=== PATIENT | male | born 1960 | race Caucasian/White ===

== ENCOUNTER 2018-11-15 06:08 | Inpatient (IN) ==
[2018-11-15] MEDS ORDERED: Albuterol 2.5 MG/3 ML NEBULIZER IH ONE (06:18)
[2018-11-15] MEDS ORDERED: CeFAZolin Syr 2,000MG/20 ML 2,000 MG/20 ML SYRINGE IVPB ONE (06:18)
[2018-11-15] MEDS ORDERED: Ringers Solution, Lactated 1,000 ML IVC SCH (06:30)
[2018-11-15] MEDS ORDERED: *HR* Rocuronium Bromide 50 MG/5 ML VIAL ONE ×3 (06:37→11:54)
[2018-11-15] MEDS ORDERED: *HR* Succinylcholine 200 MG/10 ML VIAL IVP ONE (06:37)
[2018-11-15] MEDS ORDERED: Lidocaine -MPF 4% 5 ML AMPUL ONE (06:37)
[2018-11-15] MEDS ORDERED: Lidocaine -MPF 2% 2 ML VIAL ONE (06:37)
[2018-11-15] MEDS ORDERED: Dexamethasone 4 MG/ML VIAL ONE (06:37)
[2018-11-15] MEDS ORDERED: Ondansetron 4 MG/2 ML VIAL ONE (06:37)
[2018-11-15] MEDS ORDERED: *HR* FentaNYL (PF) 100 MCG/2 ML VIAL ONE ×2 (06:37→08:17)
[2018-11-15] MEDS ORDERED: *HR* Midazolam HCl 2 MG/2 ML VIAL ONE (06:37)
[2018-11-15] MEDS ORDERED: *HR* Propofol 200 MG/20 ML VIAL IVP ONE (06:37)
--- NOTE | 2018-11-15 07:05 | History & Physical Report ---
Date of Encounter: 11/15/18 Time of Encounter: 07:05 24 Hour HP Update - Instructions Instructions: If the History and Physical is less than 30 days old and was completed prior to A.M. admission and or procedure and has NOT been updated on calendar day of procedure please complete this update prior to performing procedure. - Update Patient reports changes in Medical Condition: No Changes in examination, assessment, or condition: No Changes in Medication: No Preop tests/diagnostics Reviewed: Yes Surgery Remains Indicated: Yes Consent for Planned Operative Procedure(s) Verified: Yes - Pre-Operative Checklist Preoperative Checklist Indicated: Yes Prophylactic Antibiotic Ordered: Yes Home Medications Include Beta Deedee: No Is VTE Prophylaxis Indicated?: Yes
[2018-11-15] MEDS ORDERED: *HR* Phenylephrine 10 MG/ML VIAL ONE (07:08)
--- NOTE | 2018-11-15 07:15 | Anesthesia Evaluation PreOp ---
Date of Encounter: 11/15/18 Time of Encounter: 07:13 - Past History Planned Operation: Robotic Assisted Laparoscopic Prostatectomy Cardiac History: HTN Pulmonary History: Smoker (40 years), COPD, Snore METAL STAMPER History: Denies Any Significant HX Other Medical History: Denies Any Significant HX Anesthesia History: No Prior Anesthetic Complications, Past Anesthesia Alcohol Use: occasionally Drug use: none Medications and Allergies Albuterol Sulfate [Ventolin Hfa] 2 puff IH Q6H PRN 11/15/18 [History] Amlodipine Besylate 10 mg PO DAILY 11/15/18 [History] Beclomethasone Dipropionate [QVAR 80 mcg REDIHALER] 1 puff IH BID 11/15/18 [History] DULoxetine [Cymbalta] 20 mg PO BID 11/15/18 [History] Meloxicam 15 mg PO DAILY 11/15/18 [History] Tiotropium [Spiriva] 18 mcg IH DAILY 11/15/18 [History] Allergy/AdvReac Type Severity Reaction Status Date / Time Penicillins [PCN] Allergy Rash Verified 11/15/18 06:55 - Meds/Allergy Pre-op Review Medications Reviewed: Yes Allergies Reviewed: Yes Beta Blockers on Current Med List: No Anesthesia Results - Labs Laboratory Tests 10/30/18 10/30/18 09:15 09:15 WBC 8.9 Hgb 14.3 Hct 41.5 Plt Count 311 Creatinine 0.75 - Imaging EKG: report reviewed (10/30/2018 SINUS RHYTHM WITH SHORT VA INTERVAL) Anesthesia Exam O2 Sat Height 1.83 m Height 1.83 m Weight 76.204 kg Weight 76.204 kg O2 Sat by Pulse Oximetry 97 Vital Signs Temp Pulse Resp BP Pulse Ox 98.1 F 95 18 146/84 97 11/15/18 06:32 11/15/18 06:32 11/15/18 06:32 11/15/18 06:32 11/15/18 06:32 Height: 6' Weight: 168 lbs NPO (# of Hours): 8 Pain Scale: 0 Pain Scale Used: Numeric (1 - 10) - HEENT Pupil (Motor): EOMI Mallampati: II Teeth: Missing, Poor dentition Oral Opening: Greater than 3 - METAL STAMPER LOC: Oriented METAL STAMPER Motor: Normal RUE, Normal LUE, Normal RLE, Normal LLE, Normal Face METAL STAMPER Sensory: Normal: RUE, LUE, RLE, LLE, Face - Cardiac Rhythm: Regular Murmur: None - Pulmonary Breath Sounds: bilateral Clear Respiratory Effort: Symmetrical Anesthesia Assess/Plan ASA Score: 2 Level of consciousness: Cooperative, Oriented, Tranquil Anesthetic Plan: General Monitoring Plan: Standard Monitors Recovery Plan: PACU
[2018-11-15] MEDS ORDERED: *HR* OxyCODONE Immed Rel 5 MG TABLET PO PRN (07:25)
[2018-11-15] MEDS ORDERED: Ondansetron 4 MG/2 ML VIAL IVP ONE (07:25)
[2018-11-15] MEDS ORDERED: Bupivacaine-MPF 0.25% 10 ML VIAL ONE (07:26)
[2018-11-15] MEDS ORDERED: *HR* HYDROMORPHONE 2 MG/ML VIAL ONE (09:55)
[2018-11-15] MEDS ORDERED: Neostigmine Methylsulfate 3 MG/3 ML SYRINGE ONE (11:56)
--- NOTE | 2018-11-15 12:22 | Operative Note ---
Date of procedure: 11/15/18 Pre-op diagnosis: Prostate cancer Post-op diagnosis: same Procedure: Robotic assisted radical prostatectomy with bilateral pelvic lymph node dissection Anterior urethropexy Implants: 20-Burmese Salas catheter 19-Burmese Jose Elias drain Complications: None Anesthesia: CASSYA Surgeon: Lenard Valadez Was there an library serials assistant present: No Estimated blood loss (cc): 100 Specimen: see operative note Condition: stable Disposition: PACU Procedure in Detail: INDICATIONS FOR PROCEDURE: Mr. Tipton is a 58 year-old male with history of elevated PSA. He was found on prostate needle biopsy to have Kalani 3+4 pro state cancer. Multiple cores were positive on the biopsy. He is now presenting for robotic assisted prostatectomy with bilateral pelvic lymph node dissection. He was informed of the risks of the procedure including but not limited to bleeding, infection, injury to other structures, need for further procedures, lymphocele, urinary incontinence, urine leak, erectile dysfunction, bladder neck contracture, rectal injury, and the risk of anesthesia. He is willing to proceed. PROCEDURE: After informed consent was obtained, the patient was taken to the operating room, placed supine on the table. He was given IV antibiotics for antibiotic coverage. He had AGUSTINA's and SCD's placed on the lower extremities for DVT prophylaxis. Induction of general anesthesia was performed. The arms were tucked and he was placed in lithotomy position. He was secured to the OR table with padding. A 10mm incision was made in the infraumbilical region.. The Veress needle was introduced. The water drop test passed. Pneumoperitoneum was initiated with low pressures initially. The abomen was insufflated. I then placed a robotic port through this incision. Once the trocar was in place, the 0 degree camera for the robot was placed in the field and remaining trocars were placed. Robotic ports were placed x 2 on the right side. We placed another robotic port to the left of the umbilicus. We also placed a 12mm port in the left lower quadrant and a 5mm port superior and to the left of the umbilicus. Once all trocars were in place, the robot was docked to the patient and the monopolar scissors were placed on the right robotic arm. The bipolar [place] was in the left robotic arm and the Prograsp in the 4th arm. A posterior approach was initiated. Approximately 1 to 2 cm above the rectum cautery was used to incise the peritoneum. Careful dissection identified the vas deferens. These were dissected out. Cautery was used to control any bleeders. The vas deferens was cauterized and cut. The seminal vesicles were then identified and dissected out with bipolar cautery and sharp dissection. Once the posterior dissection was completed we then turned our attention to the bladder. We initially retracted the bowel with the 4th arm. The medial umbilical ligaments were cauterized and the bladder was taken down off the anterior abdominal wall using electrocautery. The bladder was dissected down to the endopelvic fascia. The bladder was then grasped with a 4th arm and retracted cephalad. We then swept the periprostatic fat off the prostate as well as the pelvic sidewall. The fat was sent for specimen. We then incised the endopelvic fascia on both sides and carried the incision up to the prostatic apex, sweeping the levator fibers off of the prostate. I then placed a backbleeding stitch near the bladder neck using an 0 Vicryl suture. We then turned our attention to the bladder neck which was incised with the monopolar cautery until the catheter was visualized at the bladder neck. The posterior bladder neck was then opened using the cautery until the space between the prostate and the bladder neck was visualized. Careful dissection using cautery continued along the posterior aspect of the bladder neck. Eventually, the vas deferens and seminal vesicals were encountered. These were brought up into the field and elevated with the fourth arm. Denonvillier's f ascia was dissected off the prostate posteriorly. The left nerve bundle was then released sharply. I carefully divided the pedicles using multiple Hem-o-stormy clips to clip the larger prostatic pedicle. Once the pedicles were controlled the nerves were carefully dissected off the posterior aspect of the prostate. Attention was then turned to the right side. The nerve bundle was again released sharply and the pedicles were controlled using Hem-o-stormy clips. The nerve bundle was then carefully dissected off the posterior aspect of the prostate. We then used the 4th arm to place the prostate on stretch in cephalad direction. The puboprostatic ligaments were carefully incised sharply. We then transected the dorsal venous complex sharply. There was a mild amount of bleeding from the dorsal vein. The dorsal vein was closed using an 0 Vicryl suture in a [id number] fashion. This suture was then placed into the periosteum of the symphysis pubis. This was tied down to provide a urethropexy to help with postoperative continence. Once I got to the urethra this was incised with cold scissors. I cut across the urethra until the catheter was visualized. The catheter was removed and the posterior urethra was transected. The prostate was then freed. Hemostasis was adequate. Fibrillar was placed over top of the neurovascular bundles to help with hemostasis. Attention was then turned to the left pelvic sidewall. The external iliac vein was identified. Careful dissection then isolated the lymph node packet and the obturator nerve was identified. Weck clips were placed at the superior aspect of the lymph node packet. They were also placed at the inferior aspect of the lymph node packet. An identical approach was performed on the right side. The node packets were sent separately. I removed the fibrillar. The urethral vesicle anastomosis was then performed with a 3-0 V-Stormy suture in running fashion starting at 6 o'clock position. With two sutures tied together we then ran the right side up about fpc. The left side was then run around until the bladder was reanastamosed to the urethra. The final 20 Burmese catheter was placed into the bladder and balloon filled with 15 mL of sterile water. The bladder was irrigated. No leak was identified. A 19 Burmese Jose Elias drain was placed through the trocar down into the pelvis. The trocar was removed and drain sewn in place with a suture. The robot was then undocked from the patient. Using laparoscopic instruments I then moved the string from the Endo Catch bag over to the umbilical port with the assistance of the 8 mm robotic camera. After extending the incision slightly with the electrocautery the EndoCatch bag was then removed from the camera port. The abdominal fascia was then closed in a running fashion with 0 Vicryl suture. All incisions were instilled with 0.25% Marcaine. The remaining trocars were removed under direct vision and all incisions were then closed with 4-0 Monocryl in subcuticular fashion. The patient was then awakened from general anesthesia and brought to the recovery room in good condition. All sponge, needle, and instrument counts were correct.
[2018-11-15] MEDS: *HR* HYDROmorphone (PF) 1 MG/ML SYRINGE IVP PRN ×4 (12:30→12:55)
--- NOTE | 2018-11-15 13:23 | Anesthesia Evaluation Post Op ---
Date of Encounter: 11/15/18 Time of Encounter: 13:22 - Vital Signs Vital Signs: Last Vital Signs Temp 98.6 F 11/15/18 13:04 Pulse 87 11/15/18 13:04 Resp 16 11/15/18 13:04 BP 127/83 11/15/18 13:04 Pulse Ox 97 11/15/18 13:04 - Lungs Lungs: Clear Ascult./Percussion - Airway Airway: Non-obstructed - Cardiovascular Regular Rate - Mental Status Mental Status: Alert & Oriented, Answers Appropriately - Pain Pain Scale: 3 - Nausea Vomiting Nausea Vomiting: Not Present - Hydration Hydration: Ice chips - Discharge PostOp Status: Transfer Patient to floor
[2018-11-15] MEDS ORDERED: Naloxone 0.4 MG/ML INJ IVP PRN (13:46)
[2018-11-15] MEDS ORDERED: Acetaminophen 325 MG TABLET PO PRN (13:46)
[2018-11-15] MEDS ORDERED: Ondansetron 4 MG/2 ML VIAL IVP PRN (13:46)
[2018-11-15] MEDS: 0.9 % Sodium Chloride 1,000 ML IVC SCH ×2 (14:26→23:37)
[2018-11-15] MEDS: *HR* OxyCODONE Immed Rel 5 MG TABLET PO PRN (15:52)
[2018-11-15] MEDS: *HR* Heparin 5,000 UNIT/ML VIAL SQ SCH (17:15)
[2018-11-15] MEDS: OXYCODONE Oral CONC 10 MG/0.5 ML ORAL.SYG SL PRN ×2 (19:36→23:38)
[2018-11-15] MEDS: MOMETASONE FUROATE 100 mcg Inhaler IH SCH (20:14)
[2018-11-16] MEDS: *HR* OxyCODONE Immed Rel 5 MG TABLET PO PRN ×3 (03:44→13:37)
[2018-11-16] MEDS: *HR* Heparin 5,000 UNIT/ML VIAL SQ SCH (05:22)
[2018-11-16 07:37] LABS: BUN/Creatinine Ratio 16 (6-26); Blood Urea Nitrogen 10 mg/dL (6-20); Calcium 8.5 mg/dL (8.6-10.3); Carbon Dioxide 25 mEq/L (23-29); Chloride 104 mEq/L (98-107); Glucose 107 mg/dL (70-105); Osmolality,Calculated 286 (280-300); Sodium 138 mEq/L (136-145); eGFR For Non-African Americans > 60 (> 60)
[2018-11-16] MEDS: MOMETASONE FUROATE 100 mcg Inhaler IH SCH (07:41)
[2018-11-16 08:55] VITALS: BP 160/85
[2018-11-16] MEDS: 0.9 % Sodium Chloride 1,000 ML IVC SCH (08:59)
[2018-11-16] MEDS ORDERED: Tiotropium 18 MCG inhalation IH SCH (09:00)
[2018-11-16] MEDS ORDERED: amLODIPine 5 MG TABLET PO SCH (09:00)
--- NOTE | 2018-11-16 09:18 | Discharge Summary ---
Orders not resulted at time of discharge: Pending orders 11/15/18 12:05 Surgical Pathology [PTH] Routine 11/16/18 04:25 Complete Blood Count w/o Diff [HEME] AM 0400 Date of Encounter: 11/16/18 Time of Encounter: 09:22 - Discharge Diagnosis (1) Prostate cancer Priority: Primary Status: Acute - Hospital Course Hospital course: Mr. Tipton is a 58 year old male who has a history of prostate cancer. On 11/15/2018 he underwent a robotic-assisted radical prostatectomy with bilateral pelvic lymph node dissection. He did well after surgery. On postoperative day #1 his pain was well controlled. He was tolerating diet. His drain showed a low amount of output. His drain was removed and he was discharged home later that day. - Time Spent with Patient Total time spent providing and/or coordinating discharge services: Less than 30 minutes Labs on day of discharge: Labs from last 24 hours 11/16/18 04:25 Sodium 138 Potassium 4.0 Chloride 104 Carbon Dioxide 25 BUN 10 Creatinine 0.64 L Est GFR ( Amer) > 60 Est GFR (Non-Af Amer) > 60 BUN/Creatinine Ratio 16 Glucose 107 H Calculated Osmolality 286 Calcium 8.5 L - Discharge Medications Prescriptions: New Docusate [Colace] 100 mg PO BID #60 capsule Oxycodone HCl/Acetaminophen [Percocet 5-325 mg Tablet] 1 each PO Q6H PRN 4 Days #15 tablet PRN Reason: Pain Continued Tiotropium [Spiriva] 18 mcg IH DAILY Meloxicam 15 mg PO DAILY DULoxetine [Cymbalta] 20 mg PO BID Beclomethasone Dipropionate [QVAR 80 mcg REDIHALER] 1 puff IH BID Amlodipine Besylate 10 mg PO DAILY Albuterol Sulfate [Ventolin Hfa] 2 puff IH Q6H PRN PRN Reason: Shortness Of Breath Home Medications: Albuterol Sulfate [Ventolin Hfa] 2 puff IH Q6H PRN 11/15/18 [History] Amlodipine Besylate 10 mg PO DAILY 11/15/18 [History] Beclomethasone Dipropionate [QVAR 80 mcg REDIHALER] 1 puff IH BID 11/15/18 [History] DULoxetine [Cymbalta] 20 mg PO BID 11/15/18 [History] Meloxicam 15 mg PO DAILY 11/15/18 [History] Tiotropium [Spiriva] 18 mcg IH DAILY 11/15/18 [History] Docusate [Colace] 100 mg PO BID #60 capsule 11/16/18 [Rx] Oxycodone HCl/Acetaminophen [Percocet 5-325 mg Tablet] 1 each PO Q6H PRN 4 Days #15 tablet 11/16/18 [Rx] Allergies/Adverse Reactions: Allergy/AdvReac Type Severity Reaction Status Date / Time Penicillins [PCN] Allergy Rash Verified 11/15/18 06:55 Date of admission: 11/15/18 13:46 Primary care physician: Rashmi Barnhart CNP Consults: 11/15/18 14:37 Consult to Pastoral Services [CONS] Routine Comment: Discharging clinician: Lenard Valadez Anticipated date of discharge: 11/16/18 Exam Initial Vital Signs Temp Pulse Resp BP Pulse Ox 98.1 F 95 18 146/84 97 11/15/18 06:32 11/15/18 06:32 11/15/18 06:32 11/15/18 06:32 11/15/18 06:32 - General physical appearance Present: well developed, well nourished, no distress - Eyes Absent: icteric - ENT Present: normal nares - Neck Present: trachea midline - Respiratory Present: normal respiratory effort - Cardiovascular Cardiovascular exam IM: RRR - Abdomen Abdomen: Present: soft (Appropriately tender, wounds are healing well.) - Genitourinary normal penis with no external lesions (Catheter in place with clear to light pink urine) - Integumentary Present: no rash - Neurologic Present: normal coordination - Musculoskeletal Present: normal gait - Patient Status Disposition: Home, Self-Care Condition: Good Functional capacity at discharge: independent ambulation Overall status at discharge: patient is progressing back to baseline - Discharge Instructions Follow Up With: Lenard Valadez MD [Partnered Physician] - (November 26, 2018 for voiding trial. Cystogram prior.) Additional Instructions: Please provide catheter care instructions - leg bag, night bag, leg strap and how to change the bags appropriately. 1. No heavy lifting greater than 20 pounds x2 weeks. 2. No tub baths for 2 weeks. 3. May shower. 4. He should follow up in 1 week for voiding trial. 5. He should return for any fevers, chills, nausea, vomiting, or significant hematuria. 6. Please provide dressing supplies for drain site. 7. He can use bacitracin to the penile meatus for catheter comfort. - Diet and Activity Activity: increase activity as tolerated Diet: advance to your usual diet
[2018-11-16 09:40] LABS: Hematocrit 40.1 % (37.5-50.1); Hemoglobin 13.3 g/dL (12.9-16.9); Mean Corpuscular HGB Conc 33.2 g/dL (31.6-35.5); Mean Corpuscular Hemoglobin 34.2 pg (28.0-33.3); Mean Corpuscular Volume 103.1 fL (83.0-100.0); Mean Platelet Volume 10.3 fL (9.4-12.4); Platelet Count 219 K/mcL (140-400); Red Blood Count 3.89 M/mcL (4.19-5.50); Red Cell Distribution Width 13.7 % (11.5-14.5)
== END 2018-11-16 13:48 | disposition home or self-care (01) | DRG 708 ==
LOC: SAMDAY 06:08 → 3ANU 13:46
PROVIDERS: ADMIT Urology; ATTEND Urology